=== PATIENT | female | born 1965 | race American Indian/Alaskan Native ===

== ENCOUNTER 2017-01-09 12:03 | Outpatient (CLI) | payer OTHER ==
--- NOTE | 2017-01-09 13:35 | XRay Report ---
Lumbar spine 3 views: History: Lumbar pain. Findings: Normal height of vertebral bodies and intervertebral disc. Normal articular surfaces. Small osteophytes at L3-L4. No soft tissue calcification. No fracture. Impression: Early degenerative changes lumbar spine.
== END 2017-01-09 12:04 | disposition home or self-care (01) ==
LOC: XRAY 12:03
PROVIDERS: ATTEND Internal Medicine
DX: M47.896 Other spondylosis, lumbar region (principal); M25.78 Osteophyte, vertebrae; I50.9 Heart failure, unspecified; E66.9 Obesity, unspecified; D64.9 Anemia, unspecified; E78.5 Hyperlipidemia, unspecified; E87.6 Hypokalemia; E83.42 Hypomagnesemia
CPT/HCPCS: 72100